=== PATIENT | male | born 1950 | race Hispanic/Latino ===

== ENCOUNTER → 2019-03-10 | Outpatient (CLI) | payer OTHER ==
[~2019-03-10] VITALS: Ht 175.3 cm; Wt 97.1 kg
[~2019-03-10] MED LIST: AEC81 PO; AMLO10TA7 PO; DOXA8TAB81 PO; FENO134C PO; FISH12002 PO; IBUP-2077 PO; LISI40TA4 PO; METF-444 PO; METO50TA18 PO; REGADENOSON 0.4 MG/5 ML PF SYG IVP SCH; SILD20TA14 PO; SIMV20TA6 PO
== END | disposition home or self-care (01) ==
LOC: SHCH 08:35
PROVIDERS: ATTEND Internal Medicine Cardiovascular Disease
DX: R06.09 Other forms of dyspnea (principal); I20.9 Angina pectoris, unspecified
CPT/HCPCS: 78452; 93017; 96374; A9500 ×2; J2785

== ENCOUNTER → 2020-11-04 | Outpatient (CLI) | payer OTHER ==
[~2020-11-04] MED LIST changes: +AMLO-258 PO; -AMLO10TA7 PO; -REGADENOSON 0.4 MG/5 ML PF SYG IVP SCH; +SIMV-43 PO; -SIMV20TA6 PO
== END | disposition home or self-care (01) ==
LOC: RAH 08:54
PROVIDERS: ATTEND Internal Medicine Gastroenterology
DX: K80.20 Calculus of gallbladder without cholecystitis without obstruction (principal); K76.0 Fatty (change of) liver, not elsewhere classified; R14.0 Abdominal distension (gaseous)
CPT/HCPCS: 76700

== ENCOUNTER → 2020-12-11 | Outpatient (CLI) | payer OTHER ==
[~2020-12-11] MED LIST changes: -LISI40TA4 PO; +LISI40TA9 PO
== END | disposition home or self-care (01) ==
LOC: RAH 10:21
PROVIDERS: ATTEND Internal Medicine Gastroenterology
DX: R68.81 Early satiety (principal)
CPT/HCPCS: 78264; A9541

== ENCOUNTER → 2020-12-16 | Outpatient (CLI) | payer OTHER ==
[~2020-12-16] VITALS: Ht 175.3 cm; Wt 102.1 kg
[~2020-12-16] MED LIST changes: +REGADENOSON 0.4 MG/5 ML PF SYG IVP SCH
== END | disposition home or self-care (01) ==
LOC: SHCH 07:54
PROVIDERS: ATTEND Internal Medicine Cardiovascular Disease
DX: I20.9 Angina pectoris, unspecified (principal); R07.9 Chest pain, unspecified; R06.09 Other forms of dyspnea
CPT/HCPCS: 78452; 93017; 96374; A9500 ×2; J2785

== ENCOUNTER 2021-01-01 07:16 | Day surgery (SDC) | payer OTHER ==
[2020-12-30 12:01] VITALS: BP 138/72
[2020-12-30 12:34] LABS: APPEARANCE,URINE Clear (CLEAR); BILIRUBIN,URINE Negative (NEGATIVE); COLOR,URINE Yellow (YELLOW); GLUCOSE, URINE (UA) Negative (NEGATIVE); KETONES,URINE Negative (NEGATIVE); LEUKOCYTE ESTERASE ,URINE Negative (NEGATIVE); NITRATE,URINE Negative (NEGATIVE); OCCULT BLOOD,URINE Negative (NEGATIVE); PROTEIN,URINE Negative (NEGATIVE); UROBILINOGEN,URINE 0.2 mg/dL (0.2-1.0)
[2020-12-30 12:50] LABS: INR 0.99 (0.85-1.15); PROTHROMBIN TIME 10.8 SEC (9.6-11.6)
[2020-12-30 12:51] LABS: PARTIAL THROMBOPLASTIN TIME 25.8 SEC (26.3-35.5)
[2020-12-30 12:58] LABS: BASOPHILS % (AUTO) 0.3 % (0.0-5.0); EOSINOPHILS % (AUTO) 0.4 % (0.0-8.0); HEMATOCRIT 38.8 % (42-54); LYMPHOCYTES % (AUTO) 12.7 % (21.0-51.0); MEAN CORPUSCULAR HEMOGLOBIN 31.5 pg (27.0-33.0); MEAN CORPUSCULAR HGB CONC 34.5 g/dL (32.0-36.0); MEAN CORPUSCULAR VOLUME 91.1 fL (79-99); MONOCYTES % (AUTO) 5.9 % (3.0-13.0); PLATELET COUNT (AUTO) 134 K/uL (130-400); RED BLOOD CELL COUNT(AUTO) 4.26 MIL/uL (4.50-6.20); RED CELL DISTRIBUTION WIDTH 12.7 % (11.0-15.5); WHITE BLOOD COUNT (AUTO) 7.7 K/uL (4.8-10.8)
[2021-01-01] VITALS (11 sets, daily range): BP systolic 19–129; BP diastolic 55–74
[~2021-01-01] VITALS: Ht 175.3 cm; Wt 101.8 kg
[~2021-01-01 07:16] MED LIST changes: +ERGO500014 PO; +ESCI-8 PO; -FENO134C PO; -FISH12002 PO; +GABA300C PO; -IBUP-2077 PO; +ISOS30TA92 PO; -METF-444 PO; +METF-445 PO; +METO-391 PO; -METO50TA18 PO; +MONT10TA32 PO; +OMEP40CA13 PO; -REGADENOSON 0.4 MG/5 ML PF SYG IVP SCH; -SILD20TA14 PO
[2021-01-01] MEDS ORDERED: SODIUM CHLORIDE 0.9% 1000ML 1,000 ML IV SCH ×2 (08:00→11:45)
[2021-01-01] MEDS ORDERED: BIVALIRUDIN 250 MG/VIAL IV ONE (10:27)
[2021-01-01] MEDS ORDERED: MIDAZOLAM HCL 1 MG/ML 2ML VIAL ONE (10:27)
[2021-01-01] MEDS ORDERED: NITROGLYCERIN 2 MG/VIAL VIAL IV ONE (10:27)
[2021-01-01] MEDS ORDERED: FENTANYL CITRATE PF 50 MCG/1 ML 2ML VIAL ONE (10:27)
[2021-01-01] MEDS ORDERED: LIDOCAINE HCL 2% 20ML ONE (10:27)
[2021-01-01] MEDS ORDERED: IOHEXOL 350 MG/ML 100ML INFUS..BTL IV ONE (10:37)
[2021-01-01] MEDS ORDERED: IOHEXOL-350 50ML VIAL IV ONE (10:37)
[2021-01-01] MEDS ORDERED: DEXTROSE 50%-WATER 50 ML DISP.SYRIN IV PRN (11:45)
[2021-01-01] MEDS ORDERED: NITROGLYCERIN 0.4 MG SL TAB SL PRN (11:45)
[2021-01-01] MEDS ORDERED: GLUCAGON 1MG KIT 1 MG ML IM PRN (11:45)
== END 2021-01-01 16:30 ==
LOC: DAH 07:16
PROVIDERS: ATTEND Internal Medicine Cardiovascular Disease
DX: I25.118 Atherosclerotic heart disease of native coronary artery with other forms of angina pectoris (principal); T82.855A Stenosis of coronary artery stent, initial encounter; I11.0 Hypertensive heart disease with heart failure; I50.32 Chronic diastolic (congestive) heart failure; M19.90 Unspecified osteoarthritis, unspecified site; E78.49 Other hyperlipidemia; F41.9 Anxiety disorder, unspecified; E66.9 Obesity, unspecified; I25.2 Old myocardial infarction; K21.9 Gastro-esophageal reflux disease without esophagitis; Z82.49 Family history of ischemic heart disease and other diseases of the circulatory system; Z79.82 Long term (current) use of aspirin; Z79.84 Long term (current) use of oral hypoglycemic drugs; Z79.899 Other long term (current) drug therapy; Z95.5 Presence of coronary angioplasty implant and graft; Z80.6 Family history of leukemia; Z87.891 Personal history of nicotine dependence; Z72.89 Other problems related to lifestyle; Y83.8 Other surgical procedures as the cause of abnormal reaction of the patient, or of later complication, without mention of misadventure at the time of the procedure; E11.51 Type 2 diabetes mellitus with diabetic peripheral angiopathy without gangrene; Z68.33 Body mass index [BMI] 33.0-33.9, adult
CPT/HCPCS: 36415; 71045; 80048; 81003; 82948 ×2; 85025; 85610; 85730; 93005; 93458; A4215; A4216; A4221; A4222; A4223 ×3; A4606; A4663; C1760; C1894 ×2; J1644; J2250; J3010; J3490 ×2; J7030; Q9965; Q9967; 96360; 96361; 99156; 99157; J0583

== ENCOUNTER 2021-01-01 13:00 | Inpatient (IN) | payer OTHER ==
[~2021-01-01] VITALS: Ht 172.7 cm; Wt 106.6 kg
[~2021-01-01 13:00] MED LIST changes: -ERGO500014 PO; +ERGO500093 PO; -ISOS30TA92 PO; +MONT-39 PO; -MONT10TA32 PO; -OMEP40CA13 PO; +OMEP40CA21 PO
[2021-01-03] MEDS ORDERED: ISOS60TA77 PO (10:02)
[2021-01-03] MEDS ORDERED: NITR0.4T50 SL (10:02)
[2021-01-06] VITALS (33 sets, daily range): BP systolic 94–142; BP diastolic 46–68
[2021-01-06] MEDS ORDERED: 0.9%NACL 1000ML 1,000 ML IV ONE (07:16)
[2021-01-06] MEDS ORDERED: AMINOCAPROIC ACID 5,000MG VIAL 15,000 MG in 0.9% NACL 500ML IV.SOLN 420 ML IV PRN (07:30)
[2021-01-06] MEDS ORDERED: EPINEPHRINE PF 1MG AMP 10 MG in 0.9% NACL 250ML 240 ML IV PRN (07:30)
[2021-01-06] MEDS ORDERED: NOREPINEPHRINE BITARTRATE 8 MG in DEXTROSE 5%-WATER 250 ML IV PRN (07:30)
[2021-01-06 07:47] LABS: HEMOGLOBIN A1C 7.1 % (4.0-6.0)
[2021-01-06] MEDS ORDERED: AMIODARONE 150MG VIAL ONE (07:48)
[2021-01-06] MEDS ORDERED: NITROGLYCERIN 50MG/D5W 250ML 1 BOT ONE (07:48)
[2021-01-06] MEDS ORDERED: NOREPINEPHRINE BITARTRATE 1 MG/1 ML ML IV ONE (08:01)
[2021-01-06] MEDS ORDERED: AMINOCAPROIC ACID 5,000MG VIAL ONE (08:01)
[2021-01-06] MEDS ORDERED: MIDAZOLAM HCL 1 MG/ML 2ML VIAL ONE (08:01)
[2021-01-06] MEDS ORDERED: FENTANYL CITRATE PF 50 MCG/1 ML 20ML VIAL IJ ONE (08:01)
[2021-01-06] MEDS ORDERED: HEPARIN 10,000 UNIT/10ML (1,000 UNIT/ML) VIAL ONE ×2 (08:01→09:05)
[2021-01-06] MEDS ORDERED: EPINEPHRINE PF 1MG AMP ONE (08:01)
[2021-01-06] MEDS ORDERED: PROTAMINE SULFATE 10 MG/ML 25ML VIAL IV ONE (08:01)
[2021-01-06] MEDS ORDERED: LIDOCAINE PF 100MG/5ML (2%) SYRINGE 5ML ONE (08:01)
[2021-01-06] MEDS ORDERED: ESMOLOL HCL 10 MG/ML 10 ML VIAL ONE (08:01)
[2021-01-06] MEDS ORDERED: PROPOFOL 10 MG/ML 20ML VIAL IV ONE (08:01)
[2021-01-06] MEDS ORDERED: SODIUM BICARB 50MEQ 50ML VIAL 150 ML ONE (08:01)
[2021-01-06] MEDS ORDERED: ROCURONIUM 10MG/1ML SYR 10 MG/ML ML ONE (08:02)
[2021-01-06] MEDS ORDERED: KETAMINE HCL 100 MG/ML 5ML VIAL IJ ONE (08:04)
[2021-01-06] MEDS ORDERED: DELNIDO FORMULA 2 BAG IV ONE (09:02)
[2021-01-06] MEDS ORDERED: OCTYL 2-CYANOACRYLATE 1 EACH TP ONE (09:05)
[2021-01-06] MEDS ORDERED: PAPAVERINE HCL 30 MG/ML 2ML VIAL ONE (09:05)
[2021-01-06] MEDS ORDERED: CEFAZOLIN SODIUM 1 GM VIAL ONE ×3 (09:14→12:55)
[2021-01-06 09:47] LABS: ABG BASE EXCESS -0.3 mmol/L (-2.0-3.0); ABG HCO3 25.8 mmol/L (21.0-28.0); ABG OXYGEN SATURATION 98.3 % (95.0-99.0); ABG PCO2 48 mmHg (35-48)
[2021-01-06] MEDS ORDERED: SODIUM BICARB 50MEQ 50ML VIAL 250 ML ONE (09:49)
[2021-01-06] MEDS ORDERED: ALBUMIN (HUMAN) 5% 250 ML IV ONE ×3 (09:50→18:48)
[2021-01-06] MEDS ORDERED: GLYCOPYRROLATE 1 MG/5 ML SYRINGE ONE (09:52)
[2021-01-06 10:51] LABS: ABG HCO3 25.1 mmol/L (21.0-28.0); ABG OXYGEN SATURATION 80.4 % (95.0-99.0); ABG PCO2 47 mmHg (35-48)
[2021-01-06] MEDS ORDERED: MANNITOL 25% 50ML VIAL IV ONE (11:36)
[2021-01-06] MEDS ORDERED: SODIUM BICARB 8.4% 50ML SYRINGE IVP ONE (11:36)
[2021-01-06] MEDS ORDERED: AMINOCAPROIC ACID 5,000MG VIAL IV ONE (11:36)
[2021-01-06] MEDS ORDERED: PHENYLEPHRINE HCL 10 MG/ML 1ML VIAL IV ONE (11:36)
[2021-01-06] MEDS ORDERED: DiphenhydrAMINE HCL 50 MG/ML VIAL IVP ONE (11:36)
[2021-01-06] MEDS ORDERED: HEPARIN 10,000 UNIT/10ML (1,000 UNIT/ML) VIAL IV ONE (11:36)
[2021-01-06] MEDS ORDERED: CACL 1GM SYG IVP ONE (11:36)
[2021-01-06] MEDS ORDERED: ALBUMIN (HUMAN) 25% 50 ML IV ONE (11:36)
[2021-01-06 11:37] LABS: ABG BASE EXCESS -1.1 mmol/L (-2.0-3.0); ABG HCO3 23.1 mmol/L (21.0-28.0); ABG OXYGEN SATURATION 98.6 % (95.0-99.0); ABG PCO2 36 mmHg (35-48)
[2021-01-06] MEDS ORDERED: PROTAMINE SULFATE 10 MG/ML 5 ML VIAL ONE ×2 (12:00)
[2021-01-06 12:06] LABS: ABG BASE EXCESS 0.9 mmol/L (-2.0-3.0); ABG OXYGEN SATURATION 98.3 % (95.0-99.0); ABG PCO2 38 mmHg (35-48)
[2021-01-06 12:52] LABS: ABG BASE EXCESS -1.4 mmol/L (-2.0-3.0); ABG HCO3 24.5 mmol/L (21.0-28.0); ABG OXYGEN SATURATION 95.9 % (95.0-99.0); ABG PCO2 47 mmHg (35-48)
[2021-01-06] MEDS ORDERED: EPHEDRINE SULFATE 50 MG/ML AMPULE ONE (12:56)
[2021-01-06] MEDS ORDERED: 0.9%NACL 1000ML 1,000 ML IV SCH (13:00)
[2021-01-06] MEDS ORDERED: ACETAMINOPHEN 650 MG SUPPOSITORY RC PRN (13:00)
[2021-01-06] MEDS ORDERED: AMINOCAPROIC ACID 5,000MG VIAL 15,000 MG in 0.9% NACL 250ML 250 ML IV SCH (13:00)
[2021-01-06] MEDS ORDERED: ALBUMIN (HUMAN) 5% 250 ML IV PRN (13:00)
[2021-01-06] MEDS ORDERED: POTASSIUM PHOS 15 mMOL+NS250ML 250 ML IV PRN (13:00)
[2021-01-06] MEDS ORDERED: DEXTROSE 50%-WATER 50 ML DISP.SYRIN IV PRN (13:00)
[2021-01-06] MEDS ORDERED: PROPOFOL 1000 MG/100 ML 100 ML IV PRN (13:00)
[2021-01-06] MEDS ORDERED: EPINEPHRINE PF 1MG AMP 2 MG in DEXTROSE 5%-WATER 250 ML IV PRN (13:00)
[2021-01-06] MEDS ORDERED: MORPHINE 4 MG SYG IV PRN (13:00)
[2021-01-06] MEDS ORDERED: NITROGLYCERIN 50MG/D5W 250ML 250 BOT IV SCH (13:00)
[2021-01-06] MEDS ORDERED: 0.9% NACL 250ML 250 ML IV PRN (13:00)
[2021-01-06] MEDS ORDERED: NOREPINEPHRIN 4MG/NS 250ML 250 ML IV PRN (13:00)
[2021-01-06] MEDS ORDERED: 0.9%NACL 10ML VIAL IVP PRN (13:00)
[2021-01-06] MEDS ORDERED: MAGNESIUM 2GM PREMIX 50ML 50 ML IV PRN (13:00)
[2021-01-06] MEDS ORDERED: GLUCAGON 1MG KIT 1 MG ML IM PRN (13:00)
[2021-01-06] MEDS ORDERED: CALCIUM GLUC 1GM 1 GM in 0.9%NACL 50ML 50 ML IV PRN (13:00)
[2021-01-06] MEDS ORDERED: SODIUM BICARB 50MEQ 50ML VIAL 100 ML ONE (13:24)
[2021-01-06 13:44] LABS: ABG BASE EXCESS -1.5 mmol/L (-2.0-3.0); ABG HCO3 23.8 mmol/L (21.0-28.0); ABG OXYGEN SATURATION 95.1 % (95.0-99.0); ABG PCO2 42 mmHg (35-48)
[2021-01-06 13:53] LABS: HEMATOCRIT 31.4 % (42-54); MEAN CORPUSCULAR HEMOGLOBIN 31.4 pg (27.0-33.0); MEAN CORPUSCULAR HGB CONC 33.8 g/dL (32.0-36.0); MEAN CORPUSCULAR VOLUME 92.9 fL (79-99); RED BLOOD CELL COUNT(AUTO) 3.38 MIL/uL (4.50-6.20); RED CELL DISTRIBUTION WIDTH 12.9 % (11.0-15.5); WHITE BLOOD COUNT (AUTO) 7.6 K/uL (4.8-10.8)
[2021-01-06 14:08] LABS: CREATININE 0.9 mg/dL (0.5-1.5); MAGNESIUM 1.9 mg/dL (1.80-2.40); PHOSPHORUS 4.1 mg/dL (2.5-4.9)
[2021-01-06] MEDS: POTASSIUM CHLORIDE 20MEQ/100ML 100 ML IV PRN (14:42)
[2021-01-06] MEDS: INSULIN REGULAR, HUMAN 3ML 100 UNIT in 0.9%NACL 100ML 99 ML IV SCH ×2 (16:07)
[2021-01-06] MEDS: ONDANSETRON 4MG INJ IV PRN (16:11)
[2021-01-06] MEDS: MORPHINE 2 MG SYG IV PRN ×2 (16:15→21:48)
[2021-01-06 17:27] LABS: ABG BASE EXCESS -4.8 mmol/L (-2.0-3.0); ABG HCO3 20.3 mmol/L (21.0-28.0); ABG OXYGEN SATURATION 92.3 % (95.0-99.0); ABG PCO2 38 mmHg (35-48)
[2021-01-06 18:20] LABS: MAGNESIUM 2.3 mg/dL (1.80-2.40); POTASSIUM 4.5 mmol/L (3.5-5.1)
[2021-01-07] VITALS (35 sets, daily range): BP systolic 83–141; BP diastolic 43–77
[2021-01-07] MEDS: MORPHINE 2 MG SYG IV PRN ×2 (01:32→05:19)
[2021-01-07] MEDS: ACETAMINOPHEN 325 MG TAB PO PRN (03:35)
[2021-01-07 04:18] LABS: HEMATOCRIT 29.7 % (42-54); MEAN CORPUSCULAR HEMOGLOBIN 31.3 pg (27.0-33.0); MEAN CORPUSCULAR VOLUME 94.9 fL (79-99); RED BLOOD CELL COUNT(AUTO) 3.13 MIL/uL (4.50-6.20); RED CELL DISTRIBUTION WIDTH 13.2 % (11.0-15.5); WHITE BLOOD COUNT (AUTO) 8.3 K/uL (4.8-10.8)
[2021-01-07] MEDS: NOREPINEPHRINE BITARTRATE 8 MG in 0.9% NACL 250ML 250 ML IV PRN ×2 (04:19→19:55)
[2021-01-07] MEDS: 0.9% NACL 500ML IV.SOLN 500 ML IV SCH ×2 (04:20→19:14)
[2021-01-07 04:34] LABS: CREATININE 1.1 mg/dL (0.5-1.5); PHOSPHORUS 4.6 mg/dL (2.5-4.9); POTASSIUM 4.4 mmol/L (3.5-5.1)
[2021-01-07 04:50] LABS: ABG BASE EXCESS -3.1 mmol/L (-2.0-3.0); ABG HCO3 21.6 mmol/L (21.0-28.0); ABG PCO2 38 mmHg (35-48)
[2021-01-07] MEDS ORDERED: ASPIRIN 81MG CHEW TAB ONE (09:09)
[2021-01-07 09:55] LABS: ALBUMIN 3.6 g/dL (3.5-5.0); BILIRUBIN,DIRECT 0.1 mg/dL (0.0-0.3); BILIRUBIN,TOTAL 0.6 mg/dL (0.2-1.0); TOTAL PROTEIN, SERUM 5.9 g/dL (6.0-8.3)
[2021-01-07] MEDS: ASPIRIN 81MG CHEW TAB PO SCH (10:32)
[2021-01-07] MEDS: TRAMADOL HCL 50 MG TABLET PO PRN ×3 (11:21→21:43)
[2021-01-07] MEDS: INSULIN REGULAR, HUMAN 3ML 100 UNIT in 0.9%NACL 100ML 99 ML IV SCH ×2 (19:57)
[2021-01-08] VITALS (28 sets, daily range): BP systolic 77–129; BP diastolic 14–68
[2021-01-08] MEDS: TRAMADOL HCL 50 MG TABLET PO PRN ×2 (00:04→10:53)
[2021-01-08] MEDS: ACETAMINOPHEN 325 MG TAB PO PRN (02:26)
[2021-01-08 04:25] LABS: HEMATOCRIT 30.6 % (42-54); MEAN CORPUSCULAR HEMOGLOBIN 31.2 pg (27.0-33.0); MEAN CORPUSCULAR HGB CONC 33.3 g/dL (32.0-36.0); MEAN CORPUSCULAR VOLUME 93.6 fL (79-99); RED BLOOD CELL COUNT(AUTO) 3.27 MIL/uL (4.50-6.20); RED CELL DISTRIBUTION WIDTH 13.1 % (11.0-15.5); WHITE BLOOD COUNT (AUTO) 12.3 K/uL (4.8-10.8)
[2021-01-08 04:37] LABS: CREATININE 1.3 mg/dL (0.5-1.5); POTASSIUM 3.8 mmol/L (3.5-5.1)
[2021-01-08] MEDS: POTASSIUM CHLORIDE 20MEQ/100ML 100 ML IV PRN (05:30)
[2021-01-08] MEDS: ASPIRIN 81MG CHEW TAB PO SCH (10:52)
[2021-01-08] MEDS: INSULIN HUMULIN R 100 UNIT/ML 3ML SQ SCH ×3 (11:30→21:00)
[2021-01-08] MEDS: METOPROLOL TARTRATE 25 MG TAB PO SCH (19:49)
[2021-01-08] MEDS: SIMVASTATIN 20 MG TABLET PO SCH (20:05)
[2021-01-08] MEDS: HYDROCODONE/ACETAMINOPHEN 5/325 MG TAB PO PRN (22:51)
[2021-01-08] MEDS: ONDANSETRON 4MG INJ IV PRN (22:51)
[2021-01-08] MEDS ORDERED: PANTOPRAZOLE 40 MG TAB DR ONE (23:13)
[2021-01-08] MEDS: PANTOPRAZOLE 40 MG TAB DR PO SCH (23:14)
[2021-01-08] MEDS ORDERED: LIDOCAINE HCL 2% VISCOUS 30 ML, MAG/ALUM/SIMETH 30ML 30 ML, BELLADONNA-PHENOBARB ELIXIR... PO PRN ×3 (23:15)
[2021-01-09] VITALS (23 sets, daily range): BP systolic 92–150; BP diastolic 42–71
[2021-01-09] MEDS ORDERED: MAG/ALUM/SIMETH 30 ML UDCUP ONE (00:06)
[2021-01-09] MEDS ORDERED: LIDOCAINE HCL 2% VISCOUS 15 ML UDCUP ONE (00:06)
[2021-01-09 03:47] LABS: HEMATOCRIT 27.3 % (42-54); MEAN CORPUSCULAR HGB CONC 34.4 g/dL (32.0-36.0); MEAN CORPUSCULAR VOLUME 92.9 fL (79-99); RED BLOOD CELL COUNT(AUTO) 2.94 MIL/uL (4.50-6.20); RED CELL DISTRIBUTION WIDTH 13.1 % (11.0-15.5); WHITE BLOOD COUNT (AUTO) 10.9 K/uL (4.8-10.8)
[2021-01-09 03:55] LABS: CREATININE 1.1 mg/dL (0.5-1.5); MAGNESIUM 2.2 mg/dL (1.80-2.40); POTASSIUM 4.1 mmol/L (3.5-5.1)
[2021-01-09] MEDS: INSULIN HUMULIN R 100 UNIT/ML 3ML SQ SCH ×4 (07:30→20:19)
[2021-01-09] MEDS: ASPIRIN 81MG CHEW TAB PO SCH (07:55)
[2021-01-09] MEDS: PANTOPRAZOLE 40 MG TAB DR PO SCH (07:55)
[2021-01-09] MEDS: METOPROLOL TARTRATE 25 MG TAB PO SCH ×2 (07:56→20:53)
[2021-01-09] MEDS: DOCUSATE SODIUM 100 MG CAP PO SCH (07:56)
[2021-01-09] MEDS: SENNOSIDES 8.6 MG TABLET PO SCH (07:56)
[2021-01-09] MEDS ORDERED: CITALOPRAM 20 MG TABLET PO PRN (08:45)
[2021-01-09] MEDS: MONTELUKAST SODIUM 10 MG TAB PO SCH (10:47)
[2021-01-09] MEDS ORDERED: GABAPENTIN 300 MG CAPSULE PO SCH (10:47)
[2021-01-09] MEDS: TRAMADOL HCL 50 MG TABLET PO PRN (13:20)
[2021-01-09] MEDS ORDERED: PHARMACY COMMUNICATION MISC SCH (20:00)
[2021-01-09] MEDS: SIMVASTATIN 20 MG TABLET PO SCH (20:53)
[2021-01-09] MEDS ORDERED: DOXAZOSIN MESYLATE 2 MG TABLET PO SCH (21:00)
[2021-01-09 22:40] LABS: APPEARANCE,URINE Cloudy (CLEAR); BILIRUBIN,URINE Negative (NEGATIVE); COLOR,URINE Yellow (YELLOW); GLUCOSE, URINE (UA) Negative (NEGATIVE); KETONES,URINE Negative (NEGATIVE); LEUKOCYTE ESTERASE ,URINE Trace (NEGATIVE); NITRATE,URINE Negative (NEGATIVE); OCCULT BLOOD,URINE Large (NEGATIVE); PROTEIN,URINE POS 1+ mg/dL (NEGATIVE)
[2021-01-09 22:59] LABS: BACTERIA,URINE Few /HPF (None Seen); RBC,URINE 26-50 /HPF (0-1)
[2021-01-09 23:00] LABS: SQUAMOUS EPITHELIAL CELL,UR 0-2 /HPF (0-2)
[2021-01-10] VITALS (16 sets, daily range): BP systolic 104–145; BP diastolic 54–127
[2021-01-10] MEDS: 0.9% NACL 500ML IV.SOLN 500 ML IV SCH (01:29)
[2021-01-10 05:15] LABS: CREATININE 0.9 mg/dL (0.5-1.5); THYROID STIMULATING HORMONE 0.68 uIU/mL (0.36-3.74)
[2021-01-10 06:08] LABS: BASOPHILS % (AUTO) 0.1 % (0.0-5.0); EOSINOPHILS % (AUTO) 1.8 % (0.0-8.0); HEMATOCRIT 27.5 % (42-54); MEAN CORPUSCULAR HEMOGLOBIN 30.8 pg (27.0-33.0); MEAN CORPUSCULAR HGB CONC 32.7 g/dL (32.0-36.0); MEAN CORPUSCULAR VOLUME 94.2 fL (79-99); MONOCYTES % (AUTO) 6.7 % (3.0-13.0); PLATELET COUNT (AUTO) 108 K/uL (130-400); RED BLOOD CELL COUNT(AUTO) 2.92 MIL/uL (4.50-6.20); WHITE BLOOD COUNT (AUTO) 7.8 K/uL (4.8-10.8)
[2021-01-10] MEDS: INSULIN HUMULIN R 100 UNIT/ML 3ML SQ SCH ×4 (06:45→20:26)
[2021-01-10] MEDS ORDERED: MAGNESIUM CITRATE 296 ML SOLUTION PO SCH (08:00)
[2021-01-10] MEDS: PANTOPRAZOLE 40 MG TAB DR PO SCH (08:53)
[2021-01-10] MEDS: ASPIRIN 81MG CHEW TAB PO SCH (08:53)
[2021-01-10] MEDS: METOPROLOL TARTRATE 25 MG TAB PO SCH ×2 (08:53→20:29)
[2021-01-10] MEDS: SENNOSIDES 8.6 MG TABLET PO SCH (08:53)
[2021-01-10] MEDS: MONTELUKAST SODIUM 10 MG TAB PO SCH (08:53)
[2021-01-10] MEDS: DOCUSATE SODIUM 100 MG CAP PO SCH (08:53)
[2021-01-10] MEDS: SIMVASTATIN 20 MG TABLET PO SCH (20:29)
[2021-01-10] MEDS ORDERED: DOXAZOSIN MESYLATE 2 MG TABLET PO SCH (21:00)
[2021-01-10] MEDS: HYDROCODONE/ACETAMINOPHEN 5/325 MG TAB PO PRN (22:01)
[2021-01-11] VITALS (11 sets, daily range): BP systolic 107–133; BP diastolic 49–89
[2021-01-11 05:48] LABS: BASOPHILS % (AUTO) 0.4 % (0.0-5.0); EOSINOPHILS % (AUTO) 3.5 % (0.0-8.0); LYMPHOCYTES % (AUTO) 19.4 % (21.0-51.0); MEAN CORPUSCULAR HEMOGLOBIN 30.7 pg (27.0-33.0); MEAN CORPUSCULAR VOLUME 93.1 fL (79-99); MONOCYTES % (AUTO) 10.5 % (3.0-13.0); NEUTROPHILS % (AUTO) 65.7 % (40.0-77.0); PLATELET COUNT (AUTO) 117 K/uL (130-400); RED CELL DISTRIBUTION WIDTH 12.7 % (11.0-15.5); WHITE BLOOD COUNT (AUTO) 5.7 K/uL (4.8-10.8)
[2021-01-11 06:03] LABS: CREATININE 0.9 mg/dL (0.5-1.5); POTASSIUM 3.8 mmol/L (3.5-5.1)
[2021-01-11] MEDS: INSULIN HUMULIN R 100 UNIT/ML 3ML SQ SCH ×3 (06:39→16:13)
[2021-01-11] MEDS ORDERED: ENOXAPARIN SODIUM 40 MG/0.4 ML SYRINGE SQ SCH (09:00)
[2021-01-11] MEDS: PANTOPRAZOLE 40 MG TAB DR PO SCH (09:03)
[2021-01-11] MEDS: DOCUSATE SODIUM 100 MG CAP PO SCH (09:03)
[2021-01-11] MEDS: METOPROLOL TARTRATE 25 MG TAB PO SCH (09:03)
[2021-01-11] MEDS: SENNOSIDES 8.6 MG TABLET PO SCH (09:04)
[2021-01-11] MEDS: ASPIRIN 81MG CHEW TAB PO SCH (09:04)
[2021-01-11] MEDS: MONTELUKAST SODIUM 10 MG TAB PO SCH (09:05)
[2021-01-11] MEDS: FERROUS FUMARATE 324 MG TABLET PO SCH ×2 (09:10→13:53)
[2021-01-12] MEDS ORDERED: METFORMIN HCL 500 MG TAB.SR.24H PO SCH (08:00)
[2021-01-12] MEDS ORDERED: CLOPIDOGREL 75MG TAB PO SCH (09:00)
== END 2021-01-11 18:00 | DRG 235 ==
LOC: EDSTATUS 13:00 → DAHIP 01-06 07:12 → 2CH 01-06 12:03 → 2DH 01-06 17:24
PROVIDERS: ADMIT Thoracic Surgery (Cardiothoracic Vascular Surgery); ATTEND Thoracic Surgery (Cardiothoracic Vascular Surgery)
PROC: 06BP4ZZ Excision of Right Saphenous Vein, Percutaneous Endoscopic Approach (ICD-10-PCS; 2021-01-06)
PROC: 5A1221Z Performance of Cardiac Output, Continuous (ICD-10-PCS; 2021-01-06)
PROC: 04HY32Z Insertion of Monitoring Device into Lower Artery, Percutaneous Approach (ICD-10-PCS; 2021-01-06)
PROC: 02100Z9 Bypass Coronary Artery, One Artery from Left Internal Mammary, Open Approach (ICD-10-PCS; principal; 2021-01-06 09:23)
PROC: 021109W Bypass Coronary Artery, Two Arteries from Aorta with Autologous Venous Tissue, Open Approach (ICD-10-PCS; 2021-01-06 09:23)
PROC: 06BQ4ZZ Excision of Left Saphenous Vein, Percutaneous Endoscopic Approach (ICD-10-PCS; 2021-01-06 09:23)
DX: I25.10 Atherosclerotic heart disease of native coronary artery without angina pectoris (principal); R65.11 Systemic inflammatory response syndrome (SIRS) of non-infectious origin with acute organ dysfunction; J98.11 Atelectasis; E78.5 Hyperlipidemia, unspecified; K21.9 Gastro-esophageal reflux disease without esophagitis; N40.0 Benign prostatic hyperplasia without lower urinary tract symptoms; M19.90 Unspecified osteoarthritis, unspecified site; F41.9 Anxiety disorder, unspecified; E11.65 Type 2 diabetes mellitus with hyperglycemia; D69.6 Thrombocytopenia, unspecified; I10 Essential (primary) hypertension; Z20.822 Contact with and (suspected) exposure to COVID-19; Z88.8 Allergy status to other drugs, medicaments and biological substances; Z83.3 Family history of diabetes mellitus; Z80.9 Family history of malignant neoplasm, unspecified; Z82.49 Family history of ischemic heart disease and other diseases of the circulatory system
CPT/HCPCS: 36415; 36600; 71045; 80048; 80076; 81001; 82435; 82803; 82947; 82948; 83036; 83605; 83735; 84100; 84132; 84145; 84295; 84443; 85018; 85025; 85027; 85347; 86850; 86900; 86901; 86923; 93880; 94002; 94010; 94150; 94667; 94668; 97039; A4357; A7048; C1729; C1757; G0378; J0171; J0282; J0690; J1200; J1644; J1650; J1815; J2001; J2150; J2250; J2270; J2370; J2405; J2440; J2704; J2720; J3010; J3475; J3480; J3490; J7030; J7040; J7050; P9045; P9047; U0003

== ENCOUNTER 2021-01-31 21:22 | Observation (INO) | payer OTHER ==
[~2021-01-31 21:22] MED LIST changes: +ISOS60TA77 PO; +NITR0.4T50 SL
[2021-01-31] MEDS ORDERED: 0.9% NACL 500ML IV.SOLN 500 ML IV ONE (21:53)
[2021-01-31 22:05] LABS: BASOPHILS % (AUTO) 0.3 % (0.0-5.0); EOSINOPHILS % (AUTO) 1.1 % (0.0-8.0); HEMATOCRIT 32.1 % (42-54); LYMPHOCYTES % (AUTO) 17.5 % (21.0-51.0); MEAN CORPUSCULAR HEMOGLOBIN 29.8 pg (27.0-33.0); MEAN CORPUSCULAR VOLUME 87.7 fL (79-99); MONOCYTES % (AUTO) 9.4 % (3.0-13.0); NEUTROPHILS % (AUTO) 71.4 % (40.0-77.0); PLATELET COUNT (AUTO) 211 K/uL (130-400); RED BLOOD CELL COUNT(AUTO) 3.66 MIL/uL (4.50-6.20); RED CELL DISTRIBUTION WIDTH 12.5 % (11.0-15.5); WHITE BLOOD COUNT (AUTO) 7.3 K/uL (4.8-10.8)
[2021-01-31 22:15] LABS: CREATININE 1.2 mg/dL (0.5-1.5); POTASSIUM 3.8 mmol/L (3.5-5.1)
[2021-01-31 22:20] LABS: ALBUMIN 3.4 g/dL (3.5-5.0); BILIRUBIN,TOTAL 0.5 mg/dL (0.2-1.0); TOTAL PROTEIN, SERUM 7.5 g/dL (6.0-8.3)
[2021-01-31 22:21] LABS: APPEARANCE,URINE Clear (CLEAR); BILIRUBIN,URINE Negative (NEGATIVE); COLOR,URINE Yellow (YELLOW); GLUCOSE, URINE (UA) Negative (NEGATIVE); KETONES,URINE Negative (NEGATIVE); LEUKOCYTE ESTERASE ,URINE Negative (NEGATIVE); NITRATE,URINE Negative (NEGATIVE); OCCULT BLOOD,URINE Negative (NEGATIVE); PH,URINE 5.5 (5.0-8.0); PROTEIN,URINE Negative (NEGATIVE)
[2021-01-31 22:28] LABS: B-TYPE NATRIURETIC PEPTIDE < 5 pg/mL (0-100)
[2021-01-31 22:39] LABS: INR 1.41 (0.85-1.15); PARTIAL THROMBOPLASTIN TIME 26.5 SEC (26.3-35.5); PROTHROMBIN TIME 14.3 SEC (9.6-11.6)
[2021-02-01] MEDS ORDERED: 0.9%NACL 1000ML 1,000 ML IV SCH
[2021-02-01] MEDS ORDERED: ACETAMINOPHEN 325 MG TAB PO PRN ×2
[2021-02-01] MEDS ORDERED: ONDANSETRON 4MG INJ IV PRN
[2021-02-01 08:36] LABS: BASOPHILS % (AUTO) 0.2 % (0.0-5.0); EOSINOPHILS % (AUTO) 2.2 % (0.0-8.0); HEMATOCRIT 32.3 % (42-54); LYMPHOCYTES % (AUTO) 20.8 % (21.0-51.0); MEAN CORPUSCULAR HEMOGLOBIN 28.9 pg (27.0-33.0); MEAN CORPUSCULAR HGB CONC 32.8 g/dL (32.0-36.0); MONOCYTES % (AUTO) 9.4 % (3.0-13.0); PLATELET COUNT (AUTO) 188 K/uL (130-400); RED BLOOD CELL COUNT(AUTO) 3.67 MIL/uL (4.50-6.20); RED CELL DISTRIBUTION WIDTH 12.5 % (11.0-15.5); WHITE BLOOD COUNT (AUTO) 5.5 K/uL (4.8-10.8)
[2021-02-01] MEDS ORDERED: FAMOTIDINE 20MG VIAL IV ONE (08:45)
[2021-02-01 09:00] LABS: BILIRUBIN,TOTAL 0.4 mg/dL (0.2-1.0); CREATININE 0.9 mg/dL (0.5-1.5); TOTAL PROTEIN, SERUM 6.9 g/dL (6.0-8.3)
[2021-02-01] MEDS ORDERED: FAMOTIDINE 20MG VIAL IV SCH (09:00)
[2021-02-01] MEDS ORDERED: MECLIZINE HCL 25 MG TABLET PO PRN (11:30)
[2021-02-01] MEDS ORDERED: METO25TA3 PO (11:34)
[2021-02-01] MEDS ORDERED: LISI20TA24 PO (11:34)
== END 2021-02-01 12:36 | disposition home or self-care (01) ==
LOC: EDH 21:22 → EDHIP 23:49
PROVIDERS: ADMIT Internal Medicine; ATTEND Internal Medicine
DX: I95.1 Orthostatic hypotension (principal); I25.10 Atherosclerotic heart disease of native coronary artery without angina pectoris; I10 Essential (primary) hypertension; E11.9 Type 2 diabetes mellitus without complications; E78.5 Hyperlipidemia, unspecified; F41.9 Anxiety disorder, unspecified; F32.9 Major depressive disorder, single episode, unspecified; E86.0 Dehydration; M19.90 Unspecified osteoarthritis, unspecified site; N40.0 Benign prostatic hyperplasia without lower urinary tract symptoms; K21.9 Gastro-esophageal reflux disease without esophagitis; I25.2 Old myocardial infarction; E78.00 Pure hypercholesterolemia, unspecified; Z85.46 Personal history of malignant neoplasm of prostate; Z87.891 Personal history of nicotine dependence; Z95.1 Presence of aortocoronary bypass graft; Z96.651 Presence of right artificial knee joint; Z98.1 Arthrodesis status; Z79.82 Long term (current) use of aspirin; Z79.84 Long term (current) use of oral hypoglycemic drugs; Z79.899 Other long term (current) drug therapy; Z88.6 Allergy status to analgesic agent; Z88.8 Allergy status to other drugs, medicaments and biological substances; W18.39XA Other fall on same level, initial encounter; Y93.89 Activity, other specified; Y92.009 Unspecified place in unspecified non-institutional (private) residence as the place of occurrence of the external cause
CPT/HCPCS: 36415 ×2; 71045; 80053 ×2; 81003; 82550; 83880; 84484; 85025 ×2; 85610; 85730; 93005 ×2; 99285; G0378 ×13; J3490; J7040

== ENCOUNTER → 2021-11-25 | Outpatient (CLI) | payer MEDICARE, OTHER ==
[~2021-11-25] MED LIST changes: +LISI20TA24 PO; -LISI40TA9 PO; -METO-391 PO; +METO25TA3 PO
== END | disposition home or self-care (01) ==
LOC: SHCH 12:08
PROVIDERS: ATTEND Internal Medicine Cardiovascular Disease
DX: I87.2 Venous insufficiency (chronic) (peripheral) (principal); I73.9 Peripheral vascular disease, unspecified
CPT/HCPCS: 93925; 93970

== ENCOUNTER → 2023-11-01 | Outpatient (CLI) | payer OTHER ==
[~2023-11-01] MED LIST changes: +REGADENOSON 0.4 MG/5 ML PF SYG IVP ONE
== END | disposition home or self-care (01) ==
LOC: SHCH 07:44
PROVIDERS: ATTEND Internal Medicine Cardiovascular Disease
DX: I25.110 Atherosclerotic heart disease of native coronary artery with unstable angina pectoris (principal); R94.39 Abnormal result of other cardiovascular function study; I51.7 Cardiomegaly; I25.2 Old myocardial infarction
CPT/HCPCS: 78452; 96374; 93017; J2785; A9500 ×2

== ENCOUNTER → 2023-12-15 | Outpatient (CLI) | payer OTHER ==
[~2023-12-15] MED LIST changes: -REGADENOSON 0.4 MG/5 ML PF SYG IVP ONE
[2023-12-15 12:09] LABS: BASOPHILS # (AUTO) 0.03 K/uL (0.00-0.20); BASOPHILS % (AUTO) 0.3 % (0.0-5.0); EOSINOPHILS # (AUTO) 0.05 K/uL (0.00-0.70); EOSINOPHILS % (AUTO) 0.6 % (0.0-8.0); HEMATOCRIT 41.4 % (42-54); IMMATURE GRANULOCYTE ABSOLUTE 0.08 K/uL (0-1); LYMPHOCYTES # (AUTO) 1.7 K/uL (1.0-4.8); LYMPHOCYTES % (AUTO) 18.6 % (21.0-51.0); MEAN CORPUSCULAR HEMOGLOBIN 30.9 pg (27.0-33.0); MEAN CORPUSCULAR HGB CONC 32.9 g/dL (32.0-36.0); MEAN CORPUSCULAR VOLUME 94.1 fL (79-99); MONOCYTES # (AUTO) 0.6 K/uL (0.1-1.0); MONOCYTES % (AUTO) 7.1 % (3.0-13.0); NEUTROPHILS # (AUTO) 6.5 K/uL (1.8-7.7); NEUTROPHILS % (AUTO) 72.5 % (40.0-77.0); PLATELET COUNT (AUTO) 144 K/uL (130-400); RED CELL DISTRIBUTION WIDTH 12.8 % (11.0-15.5); WHITE BLOOD COUNT (AUTO) 8.9 K/uL (4.8-10.8)
[2023-12-15 12:22] LABS: INR <= 0.93 (0.85-1.15); PROTHROMBIN TIME 10.5 SEC (9.6-11.6)
[2023-12-15 12:23] LABS: CREATININE 1.3 mg/dL (0.5-1.5); PARTIAL THROMBOPLASTIN TIME 25.6 SEC (26.3-35.5); POTASSIUM 4.3 mmol/L (3.5-5.1)
== END | disposition home or self-care (01) ==
LOC: LAB 08:32
PROVIDERS: ATTEND Internal Medicine Cardiovascular Disease
DX: I10 Essential (primary) hypertension (principal); I87.1 Compression of vein; I50.32 Chronic diastolic (congestive) heart failure
CPT/HCPCS: 36415; 80048; 85025; 85610; 85730

== ENCOUNTER → 2024-01-20 | Outpatient (CLI) | payer OTHER ==
[~2024-01-20] VITALS: Ht 175.3 cm; Wt 103.8 kg
[2024-01-20 11:36] LABS: BASOPHILS # (AUTO) 0.02 K/uL (0.00-0.20); BASOPHILS % (AUTO) 0.2 % (0.0-5.0); EOSINOPHILS # (AUTO) 0.09 K/uL (0.00-0.70); EOSINOPHILS % (AUTO) 1.1 % (0.0-8.0); HEMATOCRIT 35.6 % (42-54); IMMATURE GRANULOCYTE ABSOLUTE 0.05 K/uL (0-1); LYMPHOCYTES # (AUTO) 1.6 K/uL (1.0-4.8); LYMPHOCYTES % (AUTO) 18.7 % (21.0-51.0); MEAN CORPUSCULAR HEMOGLOBIN 30.5 pg (27.0-33.0); MEAN CORPUSCULAR HGB CONC 33.7 g/dL (32.0-36.0); MEAN CORPUSCULAR VOLUME 90.6 fL (79-99); MONOCYTES # (AUTO) 0.6 K/uL (0.1-1.0); MONOCYTES % (AUTO) 7.5 % (3.0-13.0); NEUTROPHILS # (AUTO) 6.1 K/uL (1.8-7.7); NEUTROPHILS % (AUTO) 71.9 % (40.0-77.0); PLATELET COUNT (AUTO) 110 K/uL (130-400); RED BLOOD CELL COUNT(AUTO) 3.93 MIL/uL (4.50-6.20); RED CELL DISTRIBUTION WIDTH 13.1 % (11.0-15.5); WHITE BLOOD COUNT (AUTO) 8.5 K/uL (4.8-10.8)
[2024-01-20 11:45] LABS: CREATININE 1.3 mg/dL (0.5-1.3); POTASSIUM 4.4 mmol/L (3.5-5.1)
[2024-01-20 11:49] LABS: INR <= 0.93 (0.85-1.15); PROTHROMBIN TIME 10.7 SEC (9.6-11.6)
[2024-01-20 12:28] VITALS: BP 134/70; PULSE 76; RESP 18
== END | disposition home or self-care (01) ==
LOC: DAH 10:00 → EDSTATUS 11:00
PROVIDERS: ATTEND Internal Medicine Cardiovascular Disease
DX: Z01.818 Encounter for other preprocedural examination (principal); I21.9 Acute myocardial infarction, unspecified; I49.1 Atrial premature depolarization; R42 Dizziness and giddiness; R06.09 Other forms of dyspnea; Z98.890 Other specified postprocedural states
CPT/HCPCS: 36415; 71045; 80048; 85025; 85610; 85730; 93005

== ENCOUNTER 2024-04-11 05:48 | Day surgery (SDC) | payer OTHER ==
[2024-04-07 11:44] LABS: BASOPHILS # (AUTO) 0.01 K/uL (0.00-0.20); BASOPHILS % (AUTO) 0.1 % (0.0-5.0); EOSINOPHILS # (AUTO) 0.04 K/uL (0.00-0.70); EOSINOPHILS % (AUTO) 0.5 % (0.0-8.0); IMMATURE GRANULOCYTE ABSOLUTE 0.04 K/uL (0-1); LYMPHOCYTES # (AUTO) 0.8 K/uL (1.0-4.8); LYMPHOCYTES % (AUTO) 9.7 % (21.0-51.0); MEAN CORPUSCULAR HGB CONC 33.1 g/dL (32.0-36.0); MEAN CORPUSCULAR VOLUME 93.8 fL (79-99); MONOCYTES # (AUTO) 0.4 K/uL (0.1-1.0); MONOCYTES % (AUTO) 5.3 % (3.0-13.0); NEUTROPHILS % (AUTO) 83.9 % (40.0-77.0); PLATELET COUNT (AUTO) 122 K/uL (130-400); RED BLOOD CELL COUNT(AUTO) 3.84 MIL/uL (4.50-6.20); RED CELL DISTRIBUTION WIDTH 14.2 % (11.0-15.5); WHITE BLOOD COUNT (AUTO) 8.3 K/uL (4.8-10.8)
[2024-04-07 11:49] VITALS: BP 132/64; PULSE 73; RESP 19
[2024-04-07 11:55] LABS: CREATININE 1.3 mg/dL (0.5-1.3); POTASSIUM 4.7 mmol/L (3.5-5.1)
[2024-04-07 11:56] LABS: INR <= 0.93 (0.85-1.15); PROTHROMBIN TIME 10.8 SEC (9.6-11.6)
[2024-04-07 11:57] LABS: PARTIAL THROMBOPLASTIN TIME 25.4 SEC (26.3-35.5)
[~2024-04-11] VITALS: Ht 175.3 cm; Wt 103.4 kg
[2024-04-11] VITALS (13 sets, daily range): BP systolic 115–142; BP diastolic 58–78; PULSE 54–88; RESP 14–18
[~2024-04-11 05:48] MED LIST changes: -AEC81 PO; -AMLO-258 PO; +ASPI-1197 PO; +BUDE10.2 IH; +DAPA10TA PO; +DICY20TA3 PO; -ERGO500093 PO; -ESCI-8 PO; +ESOM40CA66 PO; +FAMO40TA75 PO; -GABA300C PO; +ISOS30TA92 PO; -ISOS60TA77 PO; +LEVA15HF3 IH; -LISI20TA24 PO; +LISI40TA9 PO; +METF-444 PO; -METF-445 PO; -METO25TA3 PO; -NITR0.4T50 SL; -OMEP40CA21 PO; +POTA-202 PO; +RANO500T6 PO; +Vit D 3 PO
[2024-04-11] MEDS: 0.9%NACL 1000ML 1,000 ML IV ONE (06:50)
[2024-04-11] MEDS ORDERED: IOHEXOL-350 75 ML VIAL IV ONE (07:25)
[2024-04-11] MEDS ORDERED: FENTANYL CITRATE PF 50 MCG/1 ML 2ML VIAL ONE (07:25)
[2024-04-11] MEDS ORDERED: HEPARIN 10,000 UNIT/10ML (1,000 UNIT/ML) VIAL ONE (07:25)
[2024-04-11] MEDS ORDERED: MIDAZOLAM HCL 1 MG/ML 2ML VIAL ONE ×2 (07:25→08:06)
[2024-04-11] MEDS ORDERED: LIDOCAINE HCL 400MG/20ML VIAL ONE (07:25)
[2024-04-11] MEDS ORDERED: NITROGLYCERIN 50MG VIAL ONE (07:26)
[2024-04-11] MEDS ORDERED: BIVALIRUDIN 250 MG/VIAL IV ONE (07:44)
[2024-04-11] MEDS ORDERED: IOHEXOL-350 50ML VIAL IV ONE (08:15)
[2024-04-11] MEDS ORDERED: HYDRALAZINE 20MG/ML VIAL IV PRN (09:00)
[2024-04-11] MEDS ORDERED: 0.9%NACL 1000ML 1,000 ML IV SCH (09:00)
[2024-04-11] MEDS ORDERED: GLUCAGON 1MG KIT 1 MG ML IM PRN (09:00)
[2024-04-11] MEDS ORDERED: DEXTROSE 50%-WATER 50 ML DISP.SYRIN IV PRN (09:00)
[2024-04-11] MEDS ORDERED: INSULIN HUMULIN R 100 UNIT/ML 3ML SQ SCH (11:30)
== END 2024-04-11 16:55 | disposition home or self-care (01) ==
LOC: DAH 05:48 → EDSTATUS 11:00 → DAH 16:55
PROVIDERS: ATTEND Internal Medicine Cardiovascular Disease
DX: R94.39 Abnormal result of other cardiovascular function study (principal); I25.110 Atherosclerotic heart disease of native coronary artery with unstable angina pectoris; I10 Essential (primary) hypertension; E78.5 Hyperlipidemia, unspecified; F41.9 Anxiety disorder, unspecified; E11.9 Type 2 diabetes mellitus without complications; M19.90 Unspecified osteoarthritis, unspecified site; G47.33 Obstructive sleep apnea (adult) (pediatric); Z86.73 Personal history of transient ischemic attack (TIA), and cerebral infarction without residual deficits; Z88.6 Allergy status to analgesic agent; Z88.8 Allergy status to other drugs, medicaments and biological substances; Z82.49 Family history of ischemic heart disease and other diseases of the circulatory system; Z83.3 Family history of diabetes mellitus; Z72.89 Other problems related to lifestyle; Z79.82 Long term (current) use of aspirin; Z79.84 Long term (current) use of oral hypoglycemic drugs; Z79.899 Other long term (current) drug therapy; Z98.890 Other specified postprocedural states
CPT/HCPCS: 80048; 85025; 85610; 85730; 36415; 71045; 93005; 93461; 82948 ×2; C1769; C1894 ×3; C1760; J3010; J3490 ×2; J7030; J2250 ×2; J1644; Q9967 ×2; A4615; A4215; A4222; A4221; A4663; A4216; A4606; A4223 ×3; 96360; 96361; 99156; 99157; J0583

== ENCOUNTER → 2024-10-26 | Outpatient (CLI) | payer OTHER ==
[2024-10-26 12:16] LABS: POTASSIUM 3.9 mmol/L (3.5-5.1)
== END | disposition home or self-care (01) ==
LOC: LAB 08:47
PROVIDERS: ATTEND Internal Medicine Cardiovascular Disease
DX: I25.10 Atherosclerotic heart disease of native coronary artery without angina pectoris (principal)
CPT/HCPCS: 36415; 80048

== ENCOUNTER 2025-05-08 11:17 | Emergency (ER) | payer OTHER ==
[~2025-05-08] VITALS: Ht 175.3 cm; Wt 96.6 kg
[~2025-05-08 11:17] MED LIST changes: +LISI40TA15 PO; -LISI40TA9 PO
[2025-05-08 11:54] LABS: IMMATURE GRANULOCYTE ABSOLUTE 0.10 K/uL (0-1); NUCLEATED RED BLOOD CELLS 0.0 % (0.0-0.19); PLATELET COUNT (AUTO) 120 K/uL (130-400); RED BLOOD CELL COUNT(AUTO) 4.56 MIL/uL (4.50-6.20); RED CELL DISTRIBUTION WIDTH 14.4 % (11.0-15.5); WHITE BLOOD COUNT (AUTO) 9.9 K/uL (4.8-10.8)
[2025-05-08 12:10] LABS: CREATININE 1.1 mg/dL (0.5-1.3); GLOMERULAR FILTR. RATE CALC 70.0 mL/min (>90); GLUCOSE,RANDOM 152.0 mg/dL (70-105); SODIUM SERUM 141.0 mmol/L (136-145); UREA NITROGEN, BLOOD 34.0 mg/dL (7-18)
[2025-05-08 12:14] LABS: ASPARTATE AMINOTRANSFERASE 22.0 U/L (10-37); CREATINE KINASE, TOTAL 119.0 U/L (21-232); TOTAL PROTEIN, SERUM 7.1 g/dL (6.0-8.3)
[2025-05-08 13:05] LABS: APPEARANCE,URINE CLEAR (CLEAR); GLUCOSE, URINE (UA) >=1000 mg/dL (NEGATIVE); LEUKOCYTE ESTERASE ,URINE NEGATIVE Leu/uL (NEGATIVE); NITRATE,URINE NEGATIVE (NEGATIVE); OCCULT BLOOD,URINE NEGATIVE (NEGATIVE)
[2025-05-08 13:06] LABS: ADD UA MICROSCOPIC YES
--- NOTE | 2025-05-08 13:06 | HMCIMG ---
EXAM: CR Chest, 1 View. CLINICAL HISTORY: [facility] COMPARISON: Radiograph dated April 07, 2024 FINDINGS: LUNGS: The lungs show no infiltrate or other acute finding. PLEURAL SPACES: No pleural effusion or pneumothorax. MEDIASTINUM: Prior sternotomy. Cardiac size and mediastinal contours within normal limits. BONES: No aggressive appearing osseous lesion seen. IMPRESSION: No acute cardiopulmonary pathology is evident. /Issue
--- NOTE | 2025-05-08 13:29 | EKG ---
[facility] Test Date: 2025-05-08 Test Time: 11:47:47 Pat Name: KATIA MÉNDEZ Department: ED Room: Gender: M Windows Admin: [id number] : 1950 Requested By: SHERRI VASQUEZ Order Number: [id number] Reading MD: Bethel Valle Measurements Intervals [place] Rate: 63 P: 0 [place]: 162 QRS: -40 QRSD: 106 T: -3 QT: 401 QTc: 411 Interpretive Statements Sinus rhythm LEFT AXIS DEVIATION Inferior infarct, old Consider anterior infarct Compared to ECG 04/07/2024 11:35:03 Left-axis deviation still present Myocardial infarct finding still present Electronically Signed On 05-08-2025 22:16:45 CDT by Bethel Valle Please click the below link to view image of tracing.
--- NOTE | 2025-05-08 13:40 | HMCIMG ---
EXAM: CT Head Without IV contrast. CLINICAL HISTORY: weakness TECHNIQUE: Axial computed tomography images of the head/brain without intravenous contrast. COMPARISON: None provided. FINDINGS: BRAIN: Multiple discrete and confluent hypodense areas are seen in bilateral fronto-parietal subcortical and periventricular white matter, suggesting chronic ischemic changes. Mild dilatation of the ventricular system is seen with prominence of basal cisterns and sulci, suggestive of mild age-related cerebral atrophic changes. A small area of gliosis is seen in the right capsuloganglionic region.No evidence of acute hemorrhage. No mass lesion. No CT evidence for acute territorial infarct. No midline shift or extra-axial collections. VENTRICLES: No hydrocephalus. ORBITS: The orbits are unremarkable. SINUSES AND MASTOIDS: The paranasal sinuses and mastoid air cells are clear. BONES: No fracture. SOFT TISSUES: Unremarkable. IMPRESSION: 1. No acute intracranial findings. /[place]
[2025-05-08 14:45] VITALS: TEMP 97.8
--- NOTE | 2025-05-08 15:10 | ERN ---
ED Note History of Present Illness Stated Complaint: WEAKNESS Chief Complaint: Weakness Time Seen by MD: 11:31 Dictation: 74 y/o M presenting to the ER for generalized weakness over the past few weeks but worse these past few days. Pt denies CP or SOB. Pt reports seeing PCP in clinic. Allergies: Coded Allergies: ibuprofen (Verified Allergy, Unknown, 12/30/20) naproxen (Verified Allergy, Unknown, 12/30/20) Home Meds Reported Medications Levalbuterol Tartrate (Levalbuterol Tartrate Hfa) 45 Mcg/Actuation Hfa.aer.ad, 15 GM IH Q4HPRN 04/07/24 Budesonide/Formoterol Fumarate (Symbicort 160-4.5 Mcg Inhaler) 160 Mcg-4.5 Mcg/Actuation Hfa.aer.ad, 10.2 GM IH BID 04/07/24 [Vit D 3] No Conflict Check, 22229 PO QWEEK 04/07/24 Simvastatin (Simvastatin) 20 Mg Tablet, 20 MG PO HS, TAB 04/07/24 Esomeprazole Magnesium (Esomeprazole Magnesium) 40 Mg Capsule.dr, 40 MG PO DAILY, CAP 04/07/24 Famotidine (Pepcid) 40 Mg Tablet, 40 MG PO HS, TAB 04/07/24 Aspirin (Aspirin) 81 Mg Tab.chew, 81 MG PO HS, TAB.CHEW 04/07/24 Ranolazine (Ranolazine ER) 500 Mg Tab.er.12h, 500 MG PO BID, TAB 04/07/24 Dicyclomine HCl (Dicyclomine HCl) 20 Mg Tablet, 20 MG PO TIDP, TAB 04/07/24 Montelukast Sodium (Montelukast Sodium) 10 Mg Tablet, 10 MG PO HS, TAB 04/07/24 Potassium Chloride (Potassium Chloride) 20 Meq Tab.er.prt, 20 MEQ PO DAILY 04/07/24 Metformin HCl (Metformin HCl) 500 Mg Tablet, 500 MG PO BID, TAB 04/07/24 Doxazosin Mesylate (Doxazosin Mesylate) 8 Mg Tablet, 8 MG PO HS, TAB 04/07/24 Dapagliflozin Propanediol (Farxiga) 10 Mg Tablet, 10 MG PO DAILY, TAB 04/07/24 Isosorbide Mononitrate (Isosorbide Mononitrate ER) 30 Mg Tab.er.24h, 30 MG PO DAILY, TAB 04/07/24 Lisinopril (Lisinopril) 40 Mg Tablet, 40 MG PO DAILY, TAB 04/07/24 Past Medical History Past Medical History: CVA, Diabetes-Type II, High Cholesterol, Heart Disease, Hypertension Surgical History: CABG Review of System Dictation Constitutional: Negative for fever,chills, and weight loss Eyes: Negative for injury, pain,redness, and discharge ENT: Negative for injury,pain or swelling Cardiovascular: Negative for chest pain, palpitations, and edema Respiratory: Negative for shortness of breath, cough, and wheezing, Abdomen/GI: Negative for abdominal pain, nausea, vomiting, diarrhea, and cons tipation Back: Negative for injury and pain : Negative for injury, bleeding and discharge MS/Extremity: Negative for injury and deformity Skin: Negative for rash, and discoloration Neuro:per HPI Initial Vital Sign VS Vital Signs Date Time Temp Pulse Resp B/P (MAP) Pulse Ox O2 Delivery O2 Flow Rate FiO2 05/08/25 11:24 98.6 68 18 169/95 98 05/08/25 11:57 Room Air* 0 21 Physical Exam Dictation General: awake, alert, NAD Head/Face: Normocephalic, atraumatic Eyes: PERRL, EOMI, vision at baseline ENT: oral cavity clear, TMs clear, no signs of infection Neck: Trachea midline, supple, no nuchal rigidity Cardiovascular: RRR, normal S1/S2, No MRGs, no JVD Respiratory: CTAB, no respiratory distress, No rales or wheezes Abdomen: Soft, non-tender, non-distended, normal bowel sounds, no guarding or rebound. Skin: Warm, dry, normal turgor, no rash MS/Extremity: Pulses equal, no cyanosis, neurovascular intact, FROM Neuro: COAx4, GCS 15, strength 5/5, CN 2-12 intact, normal cerebellar exam, normal gait, Psych: Normal behavior, mood, and affect normal Results (Laboratory/Radiology) Laboratory/Radiology Laboratory Tests Test 05/08/25 11:48 05/08/25 11:50 White Blood Count 9.9 K/uL (4.8-10.8) Red Blood Count 4.56 MIL/uL (4.50-6.20) Hemoglobin 14.2 g/dL (14.0-18.0) Hematocrit 41.7 % (42-54) L Mean Corpuscular Volume 91.4 fL (79-99) Mean Corpuscular Hemoglobin 31.1 pg (27.0-33.0) Mean Corpuscular Hemoglobin Concent 34.1 g/dL (32.0-36.0) Red Cell Distribution Width 14.4 % (11.0-15.5) Platelet Count 120 K/uL (130-400) L Mean Platelet Volume 11.5 fL (7.5-10.5) H Immature Granulocyte % (Auto) 1.0 % (0-1) Neutrophils (%) (Auto) 78.0 % (40.0-77.0) H Lymphocytes (%) (Auto) 13.6 % (21.0-51.0) L Monocytes (%) (Auto) 6.5 % (3.0-13.0) Eosinophils (%) (Auto) 0.6 % (0.0-8.0) Basophils (%) (Auto) 0.3 % (0.0-5.0) Neutrophils # (Auto) 7.7 K/uL (1.8-7.7) Lymphocytes # (Auto) 1.4 K/uL (1.0-4.8) Monocytes # (Auto) 0.6 K/uL (0.1-1.0) Eosinophils # (Auto) 0.06 K/uL (0.00-0.70) Basophils # (Auto) 0.03 K/uL (0.00-0.20) Absolute Immature Granulocyte (auto 0.10 K/uL (0-1) Nucleated Red Blood Cells 0.0 % (0.0-0.19) Sodium Level 141 mmol/L (136-145) Potassium Level 4.2 mmol/L (3.5-5.1) Chloride Level 103 mmol/L (101-111) Carbon Dioxide Level 26 mmol/L (21-32) Blood Urea Nitrogen 34 mg/dL (7-18) H Creatinine 1.1 mg/dL (0.5-1.3) Glomerular Filtration Rate Calc 70 mL/min (>90) Random Glucose 152 mg/dL (70-105) H Lactic Acid Level 2.4 mmol/L (0.8-2.5) Total Calcium 9.4 mg/dL (8.5-10.1) Total Bilirubin 0.5 mg/dL (0.2-1.0) Direct Bilirubin 0.1 mg/dL (0.0-0.3) Aspartate Amino Transf (AST/SGOT) 22 U/L (10-37) Alanine Aminotransferase (ALT/SGPT) 43 U/L (12-78) Alkaline Phosphatase 83 U/L (50-136) Total Creatine Kinase 119 U/L (21-232) # Troponin I High Sensitivity 8 ng/L (4-75) Total Protein 7.1 g/dL (6.0-8.3) Albumin 4.0 g/dL (3.5-5.0) Urine Color LIGHT-YELLOW (YELLOW) Urine Appearance CLEAR (CLEAR) Urine pH 5.5 (5.0-8.0) Urine Specific [place] 1.011 (1.001-1.031) Urine Protein NEGATIVE mg/dL (NEGATIVE) Urine Glucose (UA) >=1000 mg/dL (NEGATIVE) H Urine Ketones NEGATIVE mg/dL (NEGATIVE) Urine Occult Blood NEGATIVE (NEGATIVE) Urine Nitrate NEGATIVE (NEGATIVE) Urine Bilirubin NEGATIVE mg/dL (NEGATIVE) Urine Urobilinogen 0.2 mg/dL (0.2-1.0) Urine Leukocyte Esterase NEGATIVE James/uL Urine RBC 0-1 /HPF (0-1) Urine WBC 0-1 /HPF (0-1) Urine Bacteria None /HPF (None Seen) ED Course ED Course Orders Procedure Category Date Status Time 12 Lead Ekg Tracing- EKG 05/08/25 Complete Technical 11:39 Basic Metabolic Panel LAB 05/08/25 Complete 11:39 Blood Cult RADHA 05/08/25 In Process 11:39 Cbc With Differential LAB 05/08/25 Complete 11:39 Hepatic Function Panel LAB 05/08/25 Complete 11:39 Creatine Kinase, Total LAB 05/08/25 Complete 11:39 Lactic Acid LAB 05/08/25 Complete 11:39 Troponin I High LAB 05/08/25 Complete Sensitivity 11:39 Urinalysis Profile LAB 05/08/25 Complete 11:39 Chest 1vw RAD 05/08/25 Resulted 11:39 Ct Head/Brain W/O CT 05/08/25 Resulted Contrast 11:39 Lactic Acid (Removed) LAB 05/08/25 Logged 15:01 Vital Signs Date Time Temp Pulse Resp B/P (MAP) Pulse Ox O2 Delivery O2 Flow Rate FiO2 05/08/25 14:45 97.9 63 18 153/87 97 Room Air* 0 21 05/08/25 11:57 97.7 61 22 114/78 96 Room Air* 0 21 05/08/25 11:24 98.6 68 18 169/95 98 Medical Decision Making MDM MDM: Differential diagnosis: Rationale: Tests considered and ordered secondary to shared decision making include: Previous outside records reviewed: Old ER visits. Risk of complication and/or morbidity or mortality of patient management: None Medications-Per medication reconciliation There are no social concerns with this patient. Prescription drug management Prescriptions will include symptomatic care Patient's prior external medical records from other ER visits were reviewed by me as indicated. Prior testing and results from previous visits were reviewed. Prior tests were taken into account with medical decision making and resource utilization, independent historian/historians were used to obtain complete medical history. I independently interpreted the test that were performed, results were reviewed by me and considered findings on radiology if ordered. Medical management and examination interpretation discussions were had by me with other qualified healthcare professionals as indicated for the patient's care. 74-year-old male with weakness patient offered admission for neurological workup however refused says he does not want to be admitted and have this workup and a inpatient setting, NIH stroke scale is currently 0, given discharge instructions in layman's terms and advised to return if worse in any way patient agrees with treatment plan. DX & DISP Disposition: Discharge Departure Impression: Primary Impression: Weakness Condition: Stable Referrals: BORA MANZANO (PCP) SHERRI VASQUEZ MD May 08, 2025 15:10
[2025-05-08 15:16] VITALS: BP 132/83; PULSE 58; RESP 17; O2SAT 98
== END 2025-05-08 15:16 | disposition home or self-care (01) ==
LOC: EDH 11:17
DX: R53.1 Weakness (principal); E11.9 Type 2 diabetes mellitus without complications; E78.00 Pure hypercholesterolemia, unspecified; I11.9 Hypertensive heart disease without heart failure; Z79.51 Long term (current) use of inhaled steroids; Z79.82 Long term (current) use of aspirin; Z79.84 Long term (current) use of oral hypoglycemic drugs; Z79.899 Other long term (current) drug therapy; Z86.73 Personal history of transient ischemic attack (TIA), and cerebral infarction without residual deficits; Z88.6 Allergy status to analgesic agent; Z95.1 Presence of aortocoronary bypass graft
CPT/HCPCS: 36415; 70450; 71045; 80048; 80076; 81001; 82550; 83605; 84484; 85025; 87040; 93005; 99285

== ENCOUNTER 2025-05-16 10:00 | Emergency (ER) | payer OTHER ==
[~2025-05-16] VITALS: Ht 175.3 cm; Wt 91.6 kg
--- NOTE | 2025-05-16 10:55 | ERN ---
ED Note History of Present Illness Stated Complaint: NUMBNESS Chief Complaint: Numbness Time Seen by MD: 10:09 Dictation: PATIENT IS A 75-YEAR-OLD MALE COMING IN TODAY WITH COMPLAINTS OF PAIN STARTING FIVE MONTHS AGO WHEN HE WAS BALING HAY AND FELL OFF HIS TRAILER ONTO HIS BACK. HE SAID IT STARTED ON HIS LEFT SIDE IN HIS NOW MOVING TO HIS RIGHT SIDE. STATES HE HAS ALREADY SEEN HIS PRIMARY CARE DOCTOR AND A CHIROPRACTOR WHO DID X- RAYS OF HIS LUMBAR BACK AND REFERRED HIM TO A NEUROSURGEON, DR. TEMPLE AT [facility]. HE SAID HE IS COMING HERE TODAY BECAUSE HE WAS HERE ON THE 15 OF THIS MONTH AND WAS TOLD BECAUSE HE WAS REQUESTING AN MRI, HE COULD NOT GET IT THROUGH THE EMERGENCY ROOM. HE COULD IF HE WAS ADMITTED. HE SAID HE IS READY TO BE ADMITTED. NO CHANGE IN BOWEL OR BLADDER FUNCTION. Allergies: Coded Allergies: ibuprofen (Verified Allergy, Unknown, 12/30/20) naproxen (Verified Allergy, Unknown, 12/30/20) Home Meds Active Scripts Prednisone (Prednisone) 20 Mg Tablet, 1 TAB PO AD for 6 Days, #14 TAB 0 Refills TAKE 1 TAB BY MOUTH THREE TIMES PER DAY X3 DAYS, THEN TAKE 1 TAB BY MOUTH TWICE A DAY X2 DAYS, THEN TAKE 1 TAB BY MOUTH ONCE A DAY X1 DAY. TAKE WITH FOOD Prov:YOSEPH HIGGINS NUCLEAR CHEMISTRY TECHNICIAN 05/16/25 Reported Medications Levalbuterol Tartrate (Levalbuterol Tartrate Hfa) 45 Mcg/Actuation Hfa.aer.ad, 15 GM IH Q4HPRN 04/07/24 Budesonide/Formoterol Fumarate (Symbicort 160-4.5 Mcg Inhaler) 160 Mcg-4.5 Mcg/Actuation Hfa.aer.ad, 10.2 GM IH BID 04/07/24 [Vit D 3] No Conflict Check, 64016 PO QWEEK 04/07/24 Simvastatin (Simvastatin) 20 Mg Tablet, 20 MG PO HS, TAB 04/07/24 Esomeprazole Magnesium (Esomeprazole Magnesium) 40 Mg Capsule.dr, 40 MG PO DAILY, CAP 04/07/24 Famotidine (Pepcid) 40 Mg Tablet, 40 MG PO HS, TAB 04/07/24 Aspirin (Aspirin) 81 Mg Tab.chew, 81 MG PO HS, TAB.CHEW 04/07/24 Ranolazine (Ranolazine ER) 500 Mg Tab.er.12h, 500 MG PO BID, TAB 04/07/24 Dicyclomine HCl (Dicyclomine HCl) 20 Mg Tablet, 20 MG PO TIDP, TAB 04/07/24 Montelukast Sodium (Montelukast Sodium) 10 Mg Tablet, 10 MG PO HS, TAB 04/07/24 Potassium Chloride (Potassium Chloride) 20 Meq Tab.er.prt, 20 MEQ PO DAILY 04/07/24 Metformin HCl (Metformin HCl) 500 Mg Tablet, 500 MG PO BID, TAB 04/07/24 Doxazosin Mesylate (Doxazosin Mesylate) 8 Mg Tablet, 8 MG PO HS, TAB 04/07/24 Dapagliflozin Propanediol (Farxiga) 10 Mg Tablet, 10 MG PO DAILY, TAB 04/07/24 Isosorbide Mononitrate (Isosorbide Mononitrate ER) 30 Mg Tab.er.24h, 30 MG PO DAILY, TAB 04/07/24 Lisinopril (Lisinopril) 40 Mg Tablet, 40 MG PO DAILY, TAB 04/07/24 Past Medical History Past Medical History: Asthma, CVA, Diabetes-Type II, High Cholesterol, Heart Disease, Hypertension Additional Past Medical Hx: spinal cord stenosis Surgical History: CABG Surgical History Other: cardiac stent, rt knee replacement, neck surgey RN Note Reviewed/Agreed w/PFSH: Yes Review of System Dictation NORMAL ROS CONSTITUTIONAL: NEGATIVE EXCEPT FOR HPI HEAD/FACE: NEGATIVE EXCEPT FOR HPI EENT: NEGATIVE EXCEPT FOR HPI RESPIRATORY: NEGATIVE EXCEPT FOR HPI GASTROINTESTINAL/ABDOMINAL: NEGATIVE EXCEPT FOR HPI GENITOURINARY: NEGATIVE EXCEPT FOR HPI MUSCULOSKELETAL: NEGATIVE EXCEPT FOR HPI INTEGUMENTARY: NEGATIVE EXCEPT FOR HPI NEUROLOGICAL/PSYCH: NEGATIVE EXCEPT FOR HPI NUMBNESS AND TINGLING TO BILATERAL UPPER AND LOWER EXTREMITIES HEMATOLOGIC/LYMPHATIC: NEGATIVE EXCEPT FOR HPI ALL SYSTEMS NEGATIVE, EXCEPT NOTED ABOVE. 13 POINT REVIEW OF SYSTEMS ASSESSED AND ALL NEGATIVE EXCEPT FOR ABOVE. Initial Vital Sign VS Vital Signs Date Time Temp Pulse Resp B/P (MAP) Pulse Ox O2 Delivery O2 Flow Rate FiO2 05/16/25 10:03 97.5 78 20 141/84 96 Room Air 0 05/16/25 10:09 21 Physical Exam Dictation VITAL SIGNS REVIEWED GENERAL APPEARANCE: ALERT, ORIENTED X 3, N MODERATE ACUTE DISTRESS, WELL DEVELOPED, NOURISHED. HEAD AND FACE: NON-TRAUMATIC. EYES: PERRL, PINK CONJUNCTIVAS, EYELID NO TRAUMA, ANTERIOR CHAMBER WITH ARCUS SENILIS. EARS: PINNAS INTACT AND NO SIGNS OF TRAUMA OR ERYTHEMA EAR CANALS CLEAR AND NO DISCHARGE TM NO ERYTHEMA NOSE: NO DISCHARGE, NO BLEEDING. OROPHARYNX: MOUTH NORMAL, TONGUE PINK, PHARYNX CLEAR,NO ERYTHEMA, TONSILS NO EXUDATES, NO ABSCESSES NOTED, MUCOUS MEMBRANE MOIST NECK: SUPPLE, NON-TENDER, NO THYROMEGALY, NO MASSES, NO JVD, NO BRUITS BREAST:DEFERRED CHEST:NO TENDERNESS, NO CREPITUS, NO PARADOXICAL MOVEMENT, NO RETRACTIONS LUNGS:CLEAR, WELL-VENTILATED, SYMMETRIC, NO RALES, NO WHEEZING, NO RHONCHI, NO STRIDOR, GOOD BREATH SOUNDS BILATERALLY HEART: REGULAR RATE, REGULAR RHYTHM, NO MURMUR, NO GALLOPS VASCULAR: NO PERIPHERAL EDEMA, ABDOMEN: SOFT, POSITIVE BOWEL SOUNDS, NONDISTENDED, NO GUARDING, NONTENDER, NO REBOUND, NO MASSES NO HEPATOMEGALY, NO SPLENOMEGALY, NO RANDOLPH'S SIGN, NO HERNIAS. RECTAL: DEFERRED GENITAL: DEFERRED NEUROLOGICAL: NORMAL SPEECH, 4/+5 STRENGTH TO BILATERAL LOWER EXTREMITIES, 5/5 BILATERALLY UPPER EXTREMITIES. MUSCULOSKELETAL: , FULL RANGE OF MOTION, DIFFUSE CERVICAL AND LUMBAR PAIN EXTREMITIES: NONTENDER, FULL RANGE OF MOTION SKIN: COLOR PINK, DRY, NO TURGOR, NO RASH, NO LACERATIONS, NO ABRASIONS, NO CONTUSIONS. LYMPHATIC: DEFERRED Results (Laboratory/Radiology) Laboratory/Radiology IMAGING REPORT Signed PATIENT: KATIA MÉNDEZ JR MR#: [id number] : 0 1950 SEX: M AGE: 75 LOCATION: [facility] ORDER [id number] STATUS: [facility] REPORT#: [id number] SERVICE 1052 REASON: NUMBNESS AND TINGLING BILATERAL UPPER AND LOWER EXTREMITIES ORDERING PHYSICIAN: YOSEPH HIGGINS NP PROCEDURE: LUMB 2 3VW - LUMBAR SPINE 2-3VWS EXAM: CR Lumbar Spine, 3 View. CLINICAL HISTORY: NUMBNESS AND TINGLING BILATERAL UPPER AND LOWER EXTREMITIES COMPARISON: None provided. FINDINGS: Straightening of the lumbar spine may reflect paraspinal muscle spasm. Lumbar spondylosis evident by small to moderate anterior osteophytes and syndesmophytes at multiple levels. Multilevel disc disease, severe at L4-L5 and L5-S1. Vertebral body heights are maintained with no displaced fracture. Facet joint osteoarthritis at L4-L5 and L5-S1. There is no spondylolisthesis. Vascular stent overlies the right pelvis. IMPRESSION: 1. Severe degenerative changes of the lumbar spine at L4-L5 and L5-S1, including disc disease and facet arthropathy. 2. Straightening of the lumbar spine, may reflect muscle spasm. /[place] REASON: NUMBNESS AND TINGLING BILATERAL UPPER AND LOWER EXTREMITIES ORDERING PHYSICIAN: YOSEPH HIGGINS NP PROCEDURE: CERV 2 3VW - CERV SPINE 2-3VWS EXAM: CR Cervical spine, 5 View. CLINICAL HISTORY: NUMBNESS AND TINGLING BILATERAL UPPER AND LOWER EXTREMITIES COMPARISON: None provided. FINDINGS: The cervical alignment is within normal limits. There is straightening of the cervical spine that may reflect paraspinal muscle spasm. Small to moderate anterior osteophytes, uncovertebral joint hypertrophy, and mild multilevel facet joint osteoarthritis. Minimal grade 1 anterior listhesis of C4 with respect to C5. Mild to moderate multilevel degenerative disc disease, more pronounced at C3-4 and C6-7. Prevertebral soft tissues are within normal limits. No abnormality on limited views of the lung apices. IMPRESSION: 1. No acute osseous injury. 2. Multilevel cervical spondylosis, most pronounced at C3-4 and C6-7, with straightening of cervical lordosis and grade 1 anterolisthesis of C4 on C5. /[place] Labs Reviewed?: Yes ED Course ED Course Orders Procedure Category Date Status Time Cerv Spine 2-3vws RAD 05/16/25 Resulted 10:52 Lumbar Spine 2-3vws RAD 05/16/25 Resulted 10:52 Dexamethasone 4mg/Ml PHA 05/16/25 Complete 1ml Vial (Dexametha 11:00 Acetaminophen 500mg PHA 05/16/25 Complete Tab (Tylenol 500mg T 11:00 Current Medications Medications (Trade) Dose Ordered Sig/Santino Route PRN Reason Start Time Stop Time Status Last Admin Dose Admin Acetaminophen (TYLenol 500MG TAB) 1,000 mg ONCE ONCE PO 05/16/25 11:00 05/16/25 11:01 DC 05/16/25 11:24 Dexamethasone Sodium Phosphate (dexaMETHasone 4MG/ML 1ML VIAL) 8 mg ONCE ONCE IM 05/16/25 11:00 05/16/25 11:01 DC 05/16/25 11:24 Vital Signs Date Time Temp Pulse Resp B/P (MAP) Pulse Ox O2 Delivery O2 Flow Rate FiO2 05/16/25 12:58 97.5 68 20 142/80 96 Room Air* 0 21 05/16/25 11:13 97.5 78 20 141/84 96 Room Air* 0 21 05/16/25 10:09 97.5 78 16 141/84 96 Room Air* 0 21 05/16/25 10:03 97.5 78 20 141/84 96 Room Air 0 1250/RANJAN SPOKE WITH /NEUROSURGERY AND REVIEWED X-RAYS HE SAID HE AGREED TO SEE PATIENT IN HIS OFFICE. DISCUSSED THIS WITH PATIENT AND HE WILL BE GLAD TO BE REFERRED. Medical Decision Making MDM MEDICAL DECISION-MAKING BASED ON BASIC X-RAYS AND CONSULTATION WITH NEUROSURGERY. PATIENT WILL CALL FOR AN APPOINTMENT TODAY. SENT HOME WITH PREDNISONE AND IBUPROFEN DX & DISP Disposition: Discharge Departure Impression: Primary Impression: DJD (degenerative joint disease), cervical Additional Impressions: DJD (degenerative joint disease), lumbosacral, Bilateral neuropathy of upper extremities Condition: Stable Scripts Prednisone (Prednisone) 20 Mg Tablet 1 TAB PO AD for 6 Days, #14 TAB 0 Refills TAKE 1 TAB BY MOUTH THREE TIMES PER DAY X3 DAYS, THEN TAKE 1 TAB BY MOUTH TWICE A DAY X2 DAYS, THEN TAKE 1 TAB BY MOUTH ONCE A DAY X1 DAY. TAKE WITH FOOD Prov: YOSEPH HIGGINS NUCLEAR CHEMISTRY TECHNICIAN 05/16/25 Additional Instructions: FOLLOW-UP WITH PRIMARY CARE PROVIDER IN 1 TO 2 DAYS. TAKE MEDICATIONS DIRECTED HERE IN THE EMERGENCY ROOM. OKAY TO CONTINUE HOME MEDICATIONS UNLESS OTHERWISE DISCUSSED DURING YOUR VISIT IN THE EMERGENCY ROOM TODAY. RETURN TO Y OUR NEAREST EMERGENCY ROOM IF SYMPTOMS WORSEN OR IF THERE IS NO IMPROVEMENT. CALL 911 IF YOU NEED IMMEDIATE ASSISTANCE. TAKE TYLENOL OR MOTRIN [id number] NEEDED AND IF NO CONTRAINDICATIONS ARE PRESENT. INCREASE ORAL HYDRATION. A WOUND CULTURE OR URINE CULTURE WAS ORDERED HERE IN THE EMERGENCY ROOM DEPARTMENT PLEASE FOLLOW-UP WITH PRIMARY CARE PROVIDER AND ADVISE THEM TO GET REPEAT PORTS FROM OUR FACILITY. IF YOU HAD ANY LICO WRAP/SPLINTS THAT WERE APPLIED HERE, PLEASE DO NOT REMOVE THEM UNTIL YOU SEE YOUR PRIMARY CARE OR SPECIALTY. TAKE PREDNISONE DIRECTED WITH FOOD. CALL / NEUROSURGEON FOR APPOINTMENT TODAY Referrals: BORA MANZANO (PCP) AIRNA WOODRUFF MD Time of Disposition: 12:56 I have reviewed, & agreed with my scribe's, documentation. YOSEPH HIGGINS NP May 16, 2025 10:55 TARYN WALLACE DO May 16, 2025 14:37
--- NOTE | 2025-05-16 12:22 | HMCIMG ---
EXAM: CR Cervical spine, 5 View. CLINICAL HISTORY: NUMBNESS AND TINGLING BILATERAL UPPER AND LOWER EXTREMITIES COMPARISON: None provided. FINDINGS: The cervical alignment is within normal limits. There is straightening of the cervical spine that may reflect paraspinal muscle spasm. Small to moderate anterior osteophytes, uncovertebral joint hypertrophy, and mild multilevel facet joint osteoarthritis. Minimal grade 1 anterior listhesis of C4 with respect to C5. Mild to moderate multilevel degenerative disc disease, more pronounced at C3-4 and C6-7. Prevertebral soft tissues are within normal limits. No abnormality on limited views of the lung apices. IMPRESSION: 1. No acute osseous injury. 2. Multilevel cervical spondylosis, most pronounced at C3-4 and C6-7, with straightening of cervical lordosis and grade 1 anterolisthesis of C4 on C5. /[place]
--- NOTE | 2025-05-16 12:23 | HMCIMG ---
EXAM: CR Lumbar Spine, 3 View. CLINICAL HISTORY: NUMBNESS AND TINGLING BILATERAL UPPER AND LOWER EXTREMITIES COMPARISON: None provided. FINDINGS: Straightening of the lumbar spine may reflect paraspinal muscle spasm. Lumbar spondylosis evident by small to moderate anterior osteophytes and syndesmophytes at multiple levels. Multilevel disc disease, severe at L4-L5 and L5-S1. Vertebral body heights are maintained with no displaced fracture. Facet joint osteoarthritis at L4-L5 and L5-S1. There is no spondylolisthesis. Vascular stent overlies the right pelvis. IMPRESSION: 1. Severe degenerative changes of the lumbar spine at L4-L5 and L5-S1, including disc disease and facet arthropathy. 2. Straightening of the lumbar spine, may reflect muscle spasm. /[facility]
[2025-05-16] MEDS ORDERED: PRED20TA3 PO (12:57)
[2025-05-16 12:58] VITALS: BP 142/80; PULSE 68; RESP 20; TEMP 97.5; O2SAT 96
== END 2025-05-16 13:03 | disposition home or self-care (01) ==
LOC: EDH 10:00
DX: M47.816 Spondylosis without myelopathy or radiculopathy, lumbar region (principal); E11.40 Type 2 diabetes mellitus with diabetic neuropathy, unspecified; E78.00 Pure hypercholesterolemia, unspecified; I10 Essential (primary) hypertension; J45.909 Unspecified asthma, uncomplicated; Z79.51 Long term (current) use of inhaled steroids; Z79.82 Long term (current) use of aspirin; Z79.84 Long term (current) use of oral hypoglycemic drugs; Z79.899 Other long term (current) drug therapy; Z86.73 Personal history of transient ischemic attack (TIA), and cerebral infarction without residual deficits; Z88.6 Allergy status to analgesic agent; Z95.1 Presence of aortocoronary bypass graft; Z95.5 Presence of coronary angioplasty implant and graft; Z96.651 Presence of right artificial knee joint
CPT/HCPCS: 99284; 72040; 72100; 96372; J1100